=== PATIENT | female | born 1985 | race American Indian/Alaskan Native ===

== ENCOUNTER 2017-08-19 21:20 | Emergency (ER) | payer OTHER ==
[2017-08-19 21:57] VITALS: BP 117/81
[2017-08-19 22:44] LABS: HCG Qualitative,Urine Negative (Negative)
[2017-08-20] MEDS ORDERED: MOTRIN PO ONE (04:17)
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
== END 2017-08-20 04:36 | disposition home or self-care (01) ==
LOC: ED 21:20
DX: M50.30 Other cervical disc degeneration, unspecified cervical region (principal); F17.200 Nicotine dependence, unspecified, uncomplicated; V49.49XA Driver injured in collision with other motor vehicles in traffic accident, initial encounter; Y93.89 Activity, other specified; Y92.89 Other specified places as the place of occurrence of the external cause; Y99.8 Other external cause status
CPT/HCPCS: 72125; 81025